=== PATIENT | female | born 1940 | race Caucasian/White ===

== ENCOUNTER 2019-05-18 10:14 | Outpatient (CLI) | payer OTHER ==
[~2019-05-18 10:14] MED LIST: GLIMEPIRIDE2 MG PO; [UNRECOGNIZED DRUG - OTHER]
== END 2019-05-18 10:19 | disposition home or self-care (01) ==
LOC: RAD 10:14
DX: M15.8 Other polyosteoarthritis (principal); J44.9 Chronic obstructive pulmonary disease, unspecified

== ENCOUNTER 2020-01-23 08:03 | Outpatient (CLI) | payer OTHER | END 2020-01-23 08:10 | disposition home or self-care (01) | LOC: LAB 08:03 | PROVIDERS: ATTEND General Practice | DX: R07.89 Other chest pain (principal); E78.1 Pure hyperglyceridemia; J44.9 Chronic obstructive pulmonary disease, unspecified; I12.9 Hypertensive chronic kidney disease with stage 1 through stage 4 chronic kidney disease, or unspecified chronic kidney disease; Z20.828 Contact with and (suspected) exposure to other viral communicable diseases ==

== ENCOUNTER 2020-03-29 19:06 | Emergency (ER) | payer OTHER ==
[~2020-03-29] VITALS: Ht 160 cm; Wt 78.9 kg
[2020-03-30] MEDS ORDERED: DICLOFENAC SODI75 MG PO (00:56)
== END 2020-03-30 02:05 | disposition home or self-care (01) ==
LOC: ER 19:06
DX: S23.3XXA Sprain of ligaments of thoracic spine, initial encounter (principal); S33.5XXA Sprain of ligaments of lumbar spine, initial encounter; S23.41XA Sprain of ribs, initial encounter; S20.211A Contusion of right front wall of thorax, initial encounter; S20.221A Contusion of right back wall of thorax, initial encounter; S30.0XXA Contusion of lower back and pelvis, initial encounter; X50.0XXA Overexertion from strenuous movement or load, initial encounter; W18.09XA Striking against other object with subsequent fall, initial encounter; Y93.89 Activity, other specified; Y92.512 Supermarket, store or market as the place of occurrence of the external cause; Y99.8 Other external cause status; Z20.828 Contact with and (suspected) exposure to other viral communicable diseases

== ENCOUNTER 2020-06-24 07:47 | Outpatient (CLI) | payer OTHER | END 2020-06-24 07:52 | disposition home or self-care (01) | LOC: LAB 07:47 | PROVIDERS: ATTEND Internal Medicine Cardiovascular Disease | DX: I10 Essential (primary) hypertension (principal); E11.9 Type 2 diabetes mellitus without complications; E03.8 Other specified hypothyroidism; Z12.11 Encounter for screening for malignant neoplasm of colon; E55.9 Vitamin D deficiency, unspecified; E53.9 Vitamin B deficiency, unspecified; R78.2 Finding of cocaine in blood ==

== ENCOUNTER → 2020-06-24 | Outpatient (CLI) | payer OTHER ==
[~2020-06-24] MED LIST changes: +DICLOFENAC SODI75 MG PO
== END | disposition home or self-care (01) ==
LOC: MAMO-SONO 08:45
PROVIDERS: ATTEND Internal Medicine Cardiovascular Disease
DX: Z12.31 Encounter for screening mammogram for malignant neoplasm of breast (principal); N64.59 Other signs and symptoms in breast

== ENCOUNTER 2021-04-13 09:54 | Emergency (ER) | payer OTHER ==
[~2021-04-13] VITALS: Ht 160 cm; Wt 77.6 kg
[2021-04-13] MEDS ORDERED: COZAAR50 MG PO (10:10)
[2021-04-13] MEDS ORDERED: JANUMET 50-1,01 EACH PO (10:11)
== END 2021-04-13 12:18 | disposition home or self-care (01) ==
LOC: ER 09:54
DX: S70.01XS Contusion of right hip, sequela (principal); W18.09XS Striking against other object with subsequent fall, sequela

== ENCOUNTER 2021-05-12 10:48 | Outpatient (CLI) | payer OTHER ==
[~2021-05-12 10:48] MED LIST changes: +COZAAR50 MG PO; +JANUMET 50-1,01 EACH PO
== END 2021-05-12 10:50 | disposition home or self-care (01) ==
LOC: RAD 10:48
PROVIDERS: ATTEND General Practice
DX: M15.9 Polyosteoarthritis, unspecified (principal); S33.5XXA Sprain of ligaments of lumbar spine, initial encounter

== ENCOUNTER 2021-12-31 11:48 | Outpatient (CLI) | payer OTHER ==
[~2021-12-31 11:48] MED LIST changes: +GLIMEPIRIDE4 MG; +LIPITOR20 MG PO
== END 2021-12-31 12:21 | disposition home or self-care (01) ==
LOC: RAD 11:48
PROVIDERS: ATTEND General Practice
DX: S79.911A Unspecified injury of right hip, initial encounter (principal)

== ENCOUNTER 2022-08-15 18:44 | Emergency (ER) | payer OTHER ==
[~2022-08-15] VITALS: Ht 160 cm; Wt 74.8 kg
== END 2022-08-15 22:37 | disposition home or self-care (01) ==
LOC: ER 18:44
DX: R10.84 Generalized abdominal pain (principal); E11.9 Type 2 diabetes mellitus without complications; Z79.84 Long term (current) use of oral hypoglycemic drugs; I10 Essential (primary) hypertension; Z88.6 Allergy status to analgesic agent; Z91.018 Allergy to other foods